=== PATIENT | female | born 1970 | race Caucasian/White ===

== ENCOUNTER 2017-10-11 07:02 | Day surgery (SDC) | payer OTHER ==
[2017-10-11] MEDS ORDERED: ceFAZolin 1GM/50ML 50 ML IV ONE (07:56)
[2017-10-11] MEDS ORDERED: fentaNYL CITRATE 100 MCG/2 ML VL ONE (08:05)
[2017-10-11] MEDS ORDERED: MIDAZOLAM HCL 1MG/1ML-2 ML VIAL ONE (08:05)
[2017-10-11] MEDS ORDERED: PROPOFOL 10 MG/ML 20 ML IV ONE (08:09)
[2017-10-11] MEDS ORDERED: DEXAMETHASONE SOD PHOS 10MG/1ML VIAL INJ ONE (08:09)
[2017-10-11] MEDS ORDERED: KETOROLAC TROMETH 30 MG/ML 1ML VIAL ONE (08:58)
[2017-10-11 09:45] VITALS: BP 119/73
== END 2017-10-11 09:54 | disposition home or self-care (01) ==
LOC: SUR 07:02
PROVIDERS: ATTEND Urology
DX: N20.0 Calculus of kidney (principal); J44.9 Chronic obstructive pulmonary disease, unspecified; F17.210 Nicotine dependence, cigarettes, uncomplicated
CPT/HCPCS: 50590; J0690; J1100; J1885; J2250; J2704; J3010